=== PATIENT | male | born 1965 | race Caucasian/White ===

== ENCOUNTER 2022-09-18 18:47 | Emergency (ER) | payer BC, OTHER ==
[2022-09-18] MEDS ORDERED: cefTRIAXone 1 GM in Sodium Chloride 0.9% 50 ML IV ONE (19:55)
== END 2022-09-18 21:12 | disposition home or self-care (01) ==
LOC: JP.ED 18:47
DX: J18.9 Pneumonia, unspecified organism (principal); L03.113 Cellulitis of right upper limb; I10 Essential (primary) hypertension; Z79.899 Other long term (current) drug therapy
CPT/HCPCS: 36415; 71046; 80048; 85025; 87040; 96365; 99283; J0696